=== PATIENT | male | born 1970 | race Caucasian/White ===

== ENCOUNTER 2017-08-25 19:43 | Emergency (ER) | payer BC ==
[~2017-08-25] VITALS: Ht 170.2 cm; Wt 63.5 kg
[2017-08-25 19:45] VITALS: BP 135/56; Ht 170.2 cm; Wt 63.5 kg
== END 2017-08-25 21:59 | disposition left against medical advice (07) ==
LOC: ED 19:43
DX: Z53.21 Procedure and treatment not carried out due to patient leaving prior to being seen by health care provider (principal)

== ENCOUNTER 2018-02-26 13:36 | Emergency (ER) | payer BC ==
[~2018-02-26] VITALS: Ht 172.7 cm; Wt 61.0 kg
[2018-02-26 13:53] VITALS: BP 117/92; Ht 172.7 cm; Wt 61.0 kg
== END 2018-02-26 15:57 | disposition home or self-care (01) ==
LOC: ED 13:36
DX: S16.1XXA Strain of muscle, fascia and tendon at neck level, initial encounter (principal); R07.89 Other chest pain; X50.9XXA Other and unspecified overexertion or strenuous movements or postures, initial encounter; Y93.89 Activity, other specified; Y92.89 Other specified places as the place of occurrence of the external cause; Y99.8 Other external cause status
CPT/HCPCS: J1885